=== PATIENT | male | born 1980 | race Caucasian/White ===

== ENCOUNTER 2020-07-03 04:14 | Emergency (ER) | payer OTHER ==
[~2020-07-03] VITALS: Ht 180.3 cm; Wt 124.7 kg
[2020-07-03 05:14] LABS: HEMOGLOBIN 17.6 gm/dl (14.0-17.5); RED BLOOD COUNT 5.7 M/UL (4.20-5.50); WHITE BLOOD COUNT 7.5 K/UL (4.5-11.0)
[2020-07-03 05:34] LABS: BUN/CREATININE RATIO 9 (0-10)
[2020-07-03] MEDS ORDERED: NASONEX17 GM (06:01)
[2020-07-03] MEDS ORDERED: PROAIR DIGIHAL90 MCG INH (06:01)
[2020-07-03] MEDS ORDERED: FLOVENT 110.088 GM/I INH (06:01)
[2020-07-03] MEDS ORDERED: IBUPROFEN800 MG PO (06:01)
[2020-07-03] MEDS ORDERED: ZOFRAN 4 MG TAB4 MG PO (06:01)
== END 2020-07-03 08:42 | disposition home or self-care (01) ==
LOC: ER1 04:14
PROVIDERS: Emergency Medicine
DX: U07.1 COVID-19 (principal); I10 Essential (primary) hypertension; J45.909 Unspecified asthma, uncomplicated; E78.00 Pure hypercholesterolemia, unspecified; Z86.69 Personal history of other diseases of the nervous system and sense organs
CPT/HCPCS: 36415; 71045; 80053; 84484; 85025; 93005; 99285; M0239